=== PATIENT | male | born 1955 | race Caucasian/White ===

== ENCOUNTER 2018-04-08 16:38 | Emergency (ER) | payer SELFPAY ==
[~2018-04-08] VITALS: Ht 167.6 cm; Wt 83.5 kg
[2018-04-08 16:44] VITALS: BP 122/83
== END 2018-04-08 17:42 | disposition left against medical advice (07) ==
LOC: EME 16:38
DX: F10.239 Alcohol dependence with withdrawal, unspecified (principal); R11.2 Nausea with vomiting, unspecified; R19.7 Diarrhea, unspecified; Z53.21 Procedure and treatment not carried out due to patient leaving prior to being seen by health care provider